=== PATIENT | male | born 2000 | race Asian ===

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

== ENCOUNTER 2021-04-03 19:17 | Inpatient (IN) | payer MEDICAID, OTHER ==
[~2021-04-03] VITALS: Ht 170.2 cm; Wt 51.5 kg
[~2021-04-03 19:17] MED LIST: DIVA-112 PO; OLAN7.5T22 PO
[2021-04-03] MEDS ORDERED: LORazepam 1 MG TABLET PO ONE (19:45)
[2021-04-03] MEDS ORDERED: HALOPERIDOL 5 MG TABLET PO ONE (19:45)
[2021-04-03] MEDS ORDERED: PROP10TA73 PO (19:52)
[2021-04-03] MEDS ORDERED: LAMO25TA25 PO (19:52)
[2021-04-03 20:04] LABS: BASOPHILS % (AUTO) 0.8 % (0.0-2.0); EOSINOPHILS % (AUTO) 0.5 % (1.0-6.0); HEMATOCRIT 44.5 % (41-53); HEMOGLOBIN 14.7 g/dL (13.5-17.5); LYMPHOCYTES # (AUTO) 1.7 K/uL (1.0-4.8); LYMPHOCYTES % (AUTO) 18.6 % (22.0-44.0); MEAN CORPUSCULAR HEMOGLOBIN 28.4 pg (26.0-34.0); MEAN CORPUSCULAR VOLUME 86 fL (80-100); MONOCYTES # (AUTO) 0.5 K/uL (0.1-1.0); MONOCYTES % (AUTO) 5.8 % (2.0-9.0); NEUTROPHILS # (AUTO) 6.8 K/uL (1.8-7.7); NEUTROPHILS % (AUTO) 74.3 % (40.0-70.0); PLATELET COUNT (AUTO) 260 K/uL (150-450); RED BLOOD CELL COUNT(AUTO) 5.16 MIL/uL (4.50-5.90); RED CELL DISTRIBUTION WIDTH 13.4 % (11.5-14.5)
[2021-04-03 20:15] LABS: ANION GAP 11 mmol/L (8-16); CALCIUM, TOTAL 9.5 mg/dL (8.8-10.5); CARBON DIOXIDE 27 mmol/L (22-29); CHLORIDE 101 mmol/L (98-107); CREATININE 1.12 mg/dL (0.60-1.30); GLOMERULAR FILTR. RATE CALC > 60 mL/min (>60); GLUCOSE,RANDOM 91 mg/dL (70-110); POTASSIUM 3.7 mmol/L (3.5-5.1); SODIUM SERUM 139 mmol/L (136-145); UREA NITROGEN, BLOOD 11 mg/dL (7-18)
[2021-04-03 20:21] LABS: ALANINE AMINOTRANSFERASE 24 U/L (12-78); ALBUMIN 4.8 g/dL (3.4-5.0); ALKALINE PHOSPHATASE 99 U/L (46-116); ASPARTATE AMINOTRANSFERASE 15 U/L (15-37); BILIRUBIN,TOTAL 0.6 mg/dL (0.1-1.0); TOTAL PROTEIN, SERUM 8.5 g/dL (6.4-8.2)
[2021-04-03 20:41] LABS: COVID AG,FIA SOURCE NASOPHARYNGEAL
[2021-04-03 21:04] LABS: AMPHET/METH SCREEN,URINE NEGATIVE (NEGATIVE); BARBITURATE SCREEN, URINE NEGATIVE (NEGATIVE); BENZODIAZEPINES SCREEN,URINE NEGATIVE (NEGATIVE); CANNABINOID SCREEN,URINE NEGATIVE (NEGATIVE); COCAINE SCREEN,URINE NEGATIVE (NEGATIVE); METHADONE SCREEN, URINE NEGATIVE (NEGATIVE); OPIATE SCREEN,URINE NEGATIVE (NEGATIVE)
[2021-04-03 21:05] LABS: PHENCYCLIDINE SCREEN,URINE NEGATIVE (NEGATIVE)
[2021-04-03 21:21] LABS: APPEARANCE,URINE CLEAR (CLEAR); BILIRUBIN,URINE NEGATIVE (NEGATIVE); GLUCOSE, URINE (UA) NEGATIVE (NEGATIVE); KETONES,URINE TRACE mg/dL (NEGATIVE); LEUKOCYTE ESTERASE ,URINE NEGATIVE (NEGATIVE); NITRATE,URINE NEGATIVE (NEGATIVE); OCCULT BLOOD,URINE NEGATIVE (NEGATIVE); PROTEIN,URINE NEGATIVE (NEGATIVE); UROBILINOGEN,URINE 0.2 mg/dL (<=1.0)
[2021-04-03] MEDS: HALOPERIDOL 5 MG TABLET PO PRN (23:30)
[2021-04-03] MEDS: LORazepam 2 MG TABLET PO PRN (23:30)
[2021-04-04] MEDS ORDERED: MAG HYDROX/AL HYDROX/SIMETH 30 ML SUSP UDCUP PO ONE (00:30)
[2021-04-04 02:28] VITALS: BP 123/65
[2021-04-04] MEDS ORDERED: PNEUMOCOCCAL VACCINE POLYVALENT 0.5 ML VIAL [PPSV23] IM. ONE (02:45)
[2021-04-04] MEDS ORDERED: BENZOCAINE/MENTHOL LOZENGE PO PRN (06:45)
[2021-04-04] MEDS ORDERED: CloNIDine HCL 0.1 MG TABLET PO PRN (06:45)
[2021-04-04] MEDS ORDERED: MAGNESIUM HYDROXIDE SUSPENSION 30 ML UDCUP PO PRN (06:45)
[2021-04-04] MEDS ORDERED: BACITRACIN 28 GM OINTMENT TP PRN (06:45)
[2021-04-04] MEDS ORDERED: DOCUSATE SODIUM 100 MG CAPSULE PO PRN (06:45)
[2021-04-04] MEDS ORDERED: IBUPROFEN 600 MG TABLET PO PRN (06:45)
[2021-04-04] MEDS ORDERED: OMEPRAZOLE 20 MG CAPSULE PO PRN (06:45)
[2021-04-04] MEDS ORDERED: MAG HYDROX/AL HYDROX/SIMETH ES 30 ML SUSPENSION UDCUP PO PRN (06:45)
[2021-04-04] MEDS ORDERED: ONDANSETRON HCL 4 MG TABLET PO PRN (06:45)
[2021-04-04] MEDS ORDERED: PETROLATUM,WHITE 28 GM JELLY TP PRN (06:45)
[2021-04-04] MEDS ORDERED: LOPERAMIDE HCL 2 MG CAPSULE PO PRN (06:45)
[2021-04-04] MEDS ORDERED: ACETAMINOPHEN 325 MG TABLET PO PRN (06:45)
[2021-04-04] MEDS ORDERED: ALBUTEROL SULFATE HFA 90 MCG/PUFF 8 GM INHALER IH PRN (06:45)
[2021-04-04 07:42] LABS: CHOL/HDL RATIO 3.9 (4.2-7.3); FREE T4 (FREE THYROXINE) 1.35 ng/dL (0.76-1.46); THYROID STIMULATING HORMONE 9.38 uIU/mL (0.36-3.74)
[2021-04-04 08:26] VITALS: BP 107/63
[2021-04-04] MEDS: DIVALPROEX SODIUM 500 MG DR TABLET PO SCH ×2 (09:19→16:57)
[2021-04-04 16:35] VITALS: BP 102/64
[2021-04-04] MEDS: OLANZapine 7.5 MG TABLET PO SCH (20:24)
[2021-04-05 05:48] VITALS: BP 130/66
[2021-04-05 07:55] LABS: FREE T4 (FREE THYROXINE) 1.38 ng/dL (0.76-1.46); THYROID STIMULATING HORMONE 3.61 uIU/mL (0.36-3.74)
[2021-04-05 08:26] VITALS: BP 136/90
[2021-04-05] MEDS: DIVALPROEX SODIUM 500 MG DR TABLET PO SCH ×2 (08:33→16:41)
[2021-04-05 16:17] VITALS: BP 116/75
[2021-04-05] MEDS: OLANZapine 7.5 MG TABLET PO SCH (20:07)
[2021-04-05] MEDS: ZOLPIDEM TARTRATE 10 MG TABLET PO PRN (21:13)
[2021-04-06] MEDS: LORazepam 2 MG TABLET PO PRN ×3 (00:01→17:28)
[2021-04-06 01:47] VITALS: BP 112/88
[2021-04-06] MEDS: DIVALPROEX SODIUM 500 MG DR TABLET PO SCH ×2 (08:21→16:10)
[2021-04-06 08:39] VITALS: BP 124/74
[2021-04-06 16:35] VITALS: BP 113/76
[2021-04-06] MEDS: OLANZapine 10 MG TABLET PO SCH (20:08)
[2021-04-06] MEDS: ZOLPIDEM TARTRATE 10 MG TABLET PO PRN (23:10)
[2021-04-07 05:20] VITALS: BP 126/71
[2021-04-07 08:22] VITALS: BP 127/76
[2021-04-07] MEDS: DIVALPROEX SODIUM 500 MG DR TABLET PO SCH ×2 (08:23→16:10)
[2021-04-07] MEDS: OLANZapine 10 MG TABLET PO SCH (20:18)
[2021-04-07 20:33] VITALS: BP 119/67
[2021-04-08 06:01] VITALS: BP 118/76
[2021-04-08 07:22] LABS: COVID AG,FIA SOURCE NASOPHARYNGEAL
[2021-04-08 08:28] VITALS: BP 107/64
[2021-04-08] MEDS: LORazepam 2 MG TABLET PO PRN (08:51)
[2021-04-08] MEDS: HALOPERIDOL 5 MG TABLET PO PRN (08:51)
[2021-04-08] MEDS: DIVALPROEX SODIUM 500 MG DR TABLET PO SCH (08:51)
[2021-04-08] MEDS ORDERED: OLAN10TA74 PO (11:19)
== END 2021-04-08 13:35 | disposition home or self-care (01) | DRG 750 ==
LOC: EMS 19:17 → B2S 21:00
PROVIDERS: ADMIT Psychiatry & Neurology Psychiatry; ATTEND Psychiatry & Neurology Psychiatry
DX: F25.9 Schizoaffective disorder, unspecified (principal); R56.9 Unspecified convulsions; R45.851 Suicidal ideations; F41.9 Anxiety disorder, unspecified; G47.00 Insomnia, unspecified; Z20.822 Contact with and (suspected) exposure to COVID-19
CPT/HCPCS: 80053; 80061; 80164; 81003; 84439; 84443; 85025; 93005; 99285; G0480